=== PATIENT | female | born 1980 | race Caucasian/White ===

== ENCOUNTER → 2020-01-01 15:16 | Outpatient (BNVA) | payer SELFPAY | PROVIDERS: Family Provider Family Medicine; PCP Family Medicine; Visit Provider Obstetrics & Gynecology | DX: R10.2 Pelvic and perineal pain (principal) | CPT/HCPCS: 76830 ==

== ENCOUNTER → 2020-01-13 15:55 | Outpatient (BNVA) | payer SELFPAY | PROVIDERS: Family Provider Family Medicine; PCP Family Medicine; Visit Provider Obstetrics & Gynecology | DX: Z86.19 Personal history of other infectious and parasitic diseases (principal); N63.10 Unspecified lump in the right breast, unspecified quadrant | CPT/HCPCS: 88175 ==

== ENCOUNTER → 2020-01-30 14:23 | Outpatient (BNVA) | payer SELFPAY | PROVIDERS: Family Provider Family Medicine; PCP Family Medicine; Visit Provider Obstetrics & Gynecology | DX: R39.9 Unspecified symptoms and signs involving the genitourinary system (principal); R87.612 Low grade squamous intraepithelial lesion on cytologic smear of cervix (LGSIL) | CPT/HCPCS: 81000; 81025 ==

== ENCOUNTER → 2020-01-31 10:21 | Outpatient (BNVA) | payer SELFPAY | PROVIDERS: Family Provider Family Medicine; PCP Family Medicine; Visit Provider Obstetrics & Gynecology | DX: R87.612 Low grade squamous intraepithelial lesion on cytologic smear of cervix (LGSIL) (principal) | CPT/HCPCS: 88305 ==

== ENCOUNTER 2020-02-26 11:46 | Outpatient (CLI) | payer OTHER, SELFPAY ==
--- NOTE | 2020-02-26 11:58 | MM_ITS ---
WS: [id number] BILATERAL DIGITAL DIAGNOSTIC MAMMOGRAM MAMMOGRAPHY WITH CAD CLINICAL INFORMATION: RIGHT BREAST LUMP TECHNIQUE: Bilateral CC, MLO, and ML views. FINDINGS: The breasts are composed of heterogeneous fibroglandular density, which can limit the detection of sm all underlying mass lesions. Palpable marker in the right axillary tail. No underlying mammographic a bnormalities. Ultrasound is pending. Left breast is unremarkable. ULTRASOUND BREAST RIGHT TECHNIQUE: Ultrasound right breast focused area of concern. CLINICAL INFORMATION: BREAST LUMP COMPARISON: None. FINDINGS: Ultrasound right axillary tail area of concern. Normal underlying breast tissue and fatty tissue. Lob ulated slightly enlarged lymph node measuring 1.3 x 0.9 x 0.6 CM. Normal fatty hilum is not visualize d. Lymph node may be reactive but is indeterminant. This can be further evaluated with ultrasound-yassine ded biopsy. No other abnormalities. IMPRESSION: MM/[place] [id number] BI-RADS: 4A-Suspicious: Low FOLLOW UP: Ultrasound-guided biopsy
== END 2020-02-26 11:47 | disposition home or self-care (01) ==
LOC: RADSHAW 11:55
PROVIDERS: Visit Provider Nurse Practitioner Family
DX: N63.10 Unspecified lump in the right breast, unspecified quadrant (principal)
CPT/HCPCS: 76642; 77066

== ENCOUNTER 2020-03-06 12:10 | Outpatient (CLI) | payer MEDICAID, SELFPAY ==
--- NOTE | 2020-03-06 13:00 | US_ITS ---
NOTE: Report was unsigned for reason: Order was edited. Original Signature date and time was: 03/12/20 0801 WS: [id number] ULTRASOUND-GUIDED RIGHT axillary lymph node biopsy. HISTORY: R BREAST LUMP COMPARISON: 02/26/2020 Procedure, risks and complications are explained to the patient. Medications are reviewed. Consent is obtained. RIGHT axillary lymph node is localized with ultrasound. Skin is cleansed with ChloraPrep and anesthetized with 1% buffered lidocaine. Small dermatome is made. Under sterile conditions lymph node is is biopsied with a 20-gauge Achieve needle. Multiple core biopsies are performed. Material placed in formalin and sent to pathology for review. No complications encountered. Breast tissue marker (Bard ultrasound enhanced ribbon): None. Patient left the radiology suite with no complications. Patient is instructed to return to [facility] or call with any concerns. HOMER
== END 2020-03-06 12:11 | disposition home or self-care (01) ==
LOC: RAD 12:13
DX: N63.10 Unspecified lump in the right breast, unspecified quadrant (principal)
CPT/HCPCS: 19083; 38505; 76942; 88305

== ENCOUNTER 2020-09-14 14:20 | Outpatient (CLI) | payer OTHER, SELFPAY ==
--- NOTE | 2020-09-14 14:27 | US_ITS ---
WS: [id number] DIAGNOSTIC RIGHT DIGITAL MAMMOGRAM WITH CAD RIGHT breast ultrasound, limited HISTORY: breast lump , 6 month follow-up. COMPARISON: 02/26/2020 and 05/10/2011. Technique: CC, MLO and ML views. Spot compression RIGHT MLO. Breast composition: The breasts are heterogeneously dense, which may obscure small masses. No suspici ous masses. Normal fibroglandular pattern. RIGHT breast ultrasound, limited. There are no suspicious masses. Several benign lymph nodes noted in the axillary tail and towards the axilla. These lymph nodes are normal. US/US breast RT limited* [id number] IMPRESSION: BI-RADS: 1-Negative FOLLOW UP: 1 Year Follow-up
--- NOTE | 2020-09-14 14:30 | MM_ITS ---
WS: [id number] DIAGNOSTIC RIGHT DIGITAL MAMMOGRAM WITH CAD RIGHT breast ultrasound, limited HISTORY: breast lump , 6 month follow-up. COMPARISON: 02/26/2020 and 05/10/2011. Technique: CC, MLO and ML views. Spot compression RIGHT MLO. Breast composition: The breasts are heterogeneously dense, which may obscure small masses. No suspici ous masses. Normal fibroglandular pattern. RIGHT breast ultrasound, limited. There are no suspicious masses. Several benign lymph nodes noted in the axillary tail and towards the axilla. These lymph nodes are normal. MM/[place] [id number] IMPRESSION: BI-RADS: 1-Negative FOLLOW UP: 1 Year Follow-up
== END 2020-09-14 14:21 | disposition home or self-care (01) ==
LOC: RADSHAW 14:22
PROVIDERS: Visit Provider Nurse Practitioner Family
DX: N63.10 Unspecified lump in the right breast, unspecified quadrant (principal)
CPT/HCPCS: 76642; 77065

== ENCOUNTER 2021-03-08 10:58 | Outpatient (CLI) | payer OTHER, SELFPAY ==
--- NOTE | 2021-03-08 11:06 | MM_ITS ---
WS: [id number] BILATERAL DIGITAL SCREENING MAMMOGRAPHY WITH CAD CLINICAL INFORMATION: SCREENING HISTORY: Screening mammogram. No current complaints. COMPARISON: February 26, 2020 TECHNIQUE: Bilateral CC and MLO views. FINDINGS: The breasts are composed of heterogeneous fibroglandular density tissue, which can limit the detectio n of small underlying mass lesions. No suspicious mass, asymmetry, calcifications, or architectural d istortion. No evidence of malignancy. MM/[place] [id number] IMPRESSION: BI-RADS: 1-Negative FOLLOW UP: 1 Year Follow-up Recommend return to annual screening mammography.
== END 2021-03-08 10:59 | disposition home or self-care (01) ==
LOC: RADSHAW 11:02
PROVIDERS: PCP Family Medicine Adult Medicine; Visit Provider Nurse Practitioner Family
DX: Z12.31 Encounter for screening mammogram for malignant neoplasm of breast (principal)
CPT/HCPCS: 77067

== ENCOUNTER → 2021-12-21 07:51 | Outpatient (BNVA) | payer SELFPAY | PROVIDERS: PCP Family Medicine Adult Medicine; Visit Provider Family Medicine Adult Medicine | DX: I10 Essential (primary) hypertension (principal); E66.9 Obesity, unspecified; R00.2 Palpitations; R63.5 Abnormal weight gain; Q60.0 Renal agenesis, unilateral | CPT/HCPCS: 80053; 80061; 83036; 84443; 85025 ==

== ENCOUNTER 2022-01-11 08:03 | Outpatient (CLI) | payer SELFPAY ==
--- NOTE | 2022-01-11 08:20 | XRR_ITS ---
PROCEDURE INFORMATION: Exam: XR Chest Exam date and time: 01/11/2022 8:21 AM Age: 41 years old Clinical indication: Breathing pain. Right sided thoracic pain TECHNIQUE: Imaging protocol: XR of the chest. Views: 2 views. COMPARISON: No relevant prior studies available. FINDINGS: Lungs: No pulmonary consolidation. Pleural spaces: No pleural effusion. No pneumothorax. Heart/Mediastinum: The cardiac silhouette is unremarkable. No gross evidence of pneumomediastinum. Bones/joints: No gross fracture. XR/XR chest 2V* [id number] IMPRESSION: No acute cardiopulmonary abnormality identified.
== END 2022-01-11 08:04 | disposition home or self-care (01) ==
LOC: LAB 08:04 → RAD 08:11
PROVIDERS: PCP Family Medicine Adult Medicine; Visit Provider Family Medicine Adult Medicine
DX: M54.6 Pain in thoracic spine (principal)
CPT/HCPCS: 71046

== ENCOUNTER 2022-03-09 07:29 | Outpatient (CLI) | payer OTHER, SELFPAY ==
--- NOTE | 2022-03-09 07:46 | MM_ITS ---
WS: [id number] SCREENING DIGITAL BREAST TOMOSYNTHESIS MAMMOGRAM WITH CAD HISTORY: Screening annual COMPARISON: 09/14/2020, 02/26/2020 Bilateral CC and MLO with tomosynthesis and synthetic mammography submitted. Computer aided detection analyzed. Breast composition: The breasts are heterogeneously dense, which may obscure small masses. Partially obscured mass in the lateral LEFT breast near 2-3 o'clock axis measures 2.5 x 2.2 x 2.2 cm. Otherwise no abnormalities are identified. MM/[place] [id number] IMPRESSION: BI-RADS: 0-Incomplete: Need additional imaging evaluation FOLLOW UP: Need Additional Imaging Recommendation: Ultrasound LEFT breast from 1-4 o'clock.
== END 2022-03-09 07:30 | disposition home or self-care (01) ==
PROVIDERS: PCP Family Medicine Adult Medicine; Visit Provider Family Medicine Adult Medicine
DX: Z12.31 Encounter for screening mammogram for malignant neoplasm of breast (principal)
CPT/HCPCS: 77063; 77067

== ENCOUNTER 2022-04-04 15:09 | Outpatient (CLI) | payer OTHER, SELFPAY ==
--- NOTE | 2022-04-04 | US_ITS ---
WS: [id number] ULTRASOUND SOFT TISSUES RIGHT axilla HISTORY: RT AXILLA-LYMPHADENOPATHY COMPARISON: None available. TECHNIQUE: 2-D and color Doppler imaging is submitted. No mass identified within the RIGHT axilla. Mild soft tissue thickening which may be due to fat depos ition. There is a benign-appearing lymph node US/US soft tissue/extremity [id number] IMPRESSION: Negative ultrasound RIGHT axilla.
--- NOTE | 2022-04-04 15:17 | US_ITS ---
WS: [id number] ULTRASOUND LEFT BREAST HISTORY: Abnormal screening exam. COMPARISON: 03/09/2022 TECHNIQUE: 2-D and Doppler. Ultrasound directed from 1-4 o'clock. There is a large cystic mass at 3:00 measuring 1.8 x 1.2 x 2.5 cm. There are a few additional scattered cysts. No solid mass. US/US breast LT limited* [id number] IMPRESSION: BI-RADS: 2-Benign FOLLOW-UP: 1 Year Follow-up LEFT breast cyst corresponds to the mammographic abnormality. Recommend return to annual screening mammography.
== END 2022-04-04 15:10 | disposition home or self-care (01) ==
LOC: RAD 15:11
PROVIDERS: PCP Family Medicine Adult Medicine; Visit Provider Family Medicine Adult Medicine
DX: R92.8 Other abnormal and inconclusive findings on diagnostic imaging of breast (principal); N60.02 Solitary cyst of left breast
CPT/HCPCS: 76642; 76882

== ENCOUNTER 2023-04-06 12:59 | Outpatient (CLI) | payer OTHER, SELFPAY ==
--- NOTE | 2023-04-06 14:02 | MM_ITS ---
WS: [id number] BILATERAL 3D TOMOSYNTHESIS DIGITAL DIAGNOSTIC MAMMOGRAPHY WITH CAD CLINICAL INFORMATION: BREAST MASS HISTORY: RIGHT breast mass COMPARISON: 2021 TECHNIQUE: Bilateral CC, MLO, and ML views. FINDINGS: The breasts are composed of heterogeneous fibroglandular density, which can limit the detection of sm all underlying mass lesions. Palpable marker overlying the RIGHT axilla. Normal underlying Lymph nodes. No parenchymal lesions in this area. Ultrasound is pending. Previously described LEFT breast cyst near the 3:00 position has improved. LEFT breast is otherwise u nremarkable. ULTRASOUND BREAST RIGHT TECHNIQUE: Ultrasound right breast focused area of concern. CLINICAL INFORMATION: BREAST MASS FINDINGS: Ultrasound RIGHT breast at the axilla. Normal underlying parenchymal and fatty tissue. No suspicious cystic or solid lesions. No suspicious lesions to target for biopsy. A few normal-appearing lymph nod es. Recommend return to annual screening mammography. MM/[place] [id number] IMPRESSION: BI-RADS: 2-Benign FOLLOW UP: 1 Year Follow-up Recommend return to annual screening mammography.
--- NOTE | 2023-04-06 14:06 | US_ITS ---
WS: [id number] BILATERAL 3D TOMOSYNTHESIS DIGITAL DIAGNOSTIC MAMMOGRAPHY WITH CAD CLINICAL INFORMATION: BREAST MASS HISTORY: RIGHT breast mass COMPARISON: 2021 TECHNIQUE: Bilateral CC, MLO, and ML views. FINDINGS: The breasts are composed of heterogeneous fibroglandular density, which can limit the detection of sm all underlying mass lesions. Palpable marker overlying the RIGHT axilla. Normal underlying Lymph nodes. No parenchymal lesions in this area. Ultrasound is pending. Previously described LEFT breast cyst near the 3:00 position has improved. LEFT breast is otherwise u nremarkable. ULTRASOUND BREAST RIGHT TECHNIQUE: Ultrasound right breast focused area of concern. CLINICAL INFORMATION: BREAST MASS FINDINGS: Ultrasound RIGHT breast at the axilla. Normal underlying parenchymal and fatty tissue. No suspicious cystic or solid lesions. No suspicious lesions to target for biopsy. A few normal-appearing lymph nod es. Recommend return to annual screening mammography. US/US breast RT limited* [id number] IMPRESSION: BI-RADS: 2-Benign FOLLOW UP: 1 Year Follow-up Recommend return to annual screening mammography.
== END 2023-04-06 13:00 | disposition home or self-care (01) ==
PROVIDERS: PCP Family Medicine Adult Medicine; Visit Provider Advanced Practice Midwife
DX: N63.10 Unspecified lump in the right breast, unspecified quadrant (principal)
CPT/HCPCS: 76642; 77062; G0279

== ENCOUNTER 2024-04-04 14:30 | Outpatient (CLI) | payer OTHER, SELFPAY ==
--- NOTE | 2024-04-04 14:37 | MM_ITS ---
WS: [id number] BILATERAL 3D TOMOSYNTHESIS DIGITAL SCREENING MAMMOGRAPHY WITH CAD CLINICAL INFORMATION: R BREAST AXILLA LUMP HISTORY: Screening mammogram. No current complaints. COMPARISON: 04/06/2023 TECHNIQUE: Bilateral CC and MLO views. FINDINGS: The breasts are composed of heterogeneous fibroglandular density tissue, which can limit the detectio n of small underlying mass lesions. Palpable marker overlying the RIGHT axilla. Normal underlying fat ty tissue. Ultrasound of this area is pending. LEFT breast is unchanged. ULTRASOUND BREAST RIGHT TECHNIQUE: Ultrasound right breast focused area of concern. CLINICAL INFORMATION: R BREAST AXILLA LUMP FINDINGS: Ultrasound RIGHT axilla in the area of concern. Prominent underlying fatty tissue in the area of palp able concern. This is somewhat appearance of ~23. A few prominent underlying lymph nodes although sim ilar in appearance to 2022 and also similar in appearance to the contralateral LEFT axilla. Findings have a benign appearance. Recommend return to annual screening mammography. IMPRESSION MM/[place] [id number] BI-RADS: 2-Benign FOLLOW UP: 1 Year Follow-up Recommend return to annual screening mammography.
== END 2024-04-04 14:31 | disposition home or self-care (01) ==
PROVIDERS: PCP Family Medicine Adult Medicine; Visit Provider Advanced Practice Midwife
DX: R92.8 Other abnormal and inconclusive findings on diagnostic imaging of breast (principal); R92.333 Mammographic heterogeneous density, bilateral breasts; R92.323 Mammographic fibroglandular density, bilateral breasts
CPT/HCPCS: 76642; 77062; G0279

== ENCOUNTER 2025-03-05 07:49 | Outpatient (CLI) | payer OTHER, SELFPAY ==
--- NOTE | 2025-03-05 07:53 | US_ITS ---
WS: [id number] Exam: US breast RT limited* [id number] Date/Time of Exam: 03/05/2025 8:33 AM Reason For Exam: R AXILLA 6CM BREAST LUMP Comparison 04/04/2024. Regional ultrasound the RIGHT axilla is performed. There is no sign of suspicious mass. Fatty replaced lymph nodes are again noted. These are stable in appearance. BI-RADS Category 2. Recommend yearly screening mammography. IMPRESSION1. Fatty replaced right axillary lymph node stable in appearance. No suspicious ultrasound findings.
--- NOTE | 2025-03-05 07:53 | MM_ITS ---
WS: [id number] VIEWS: MLO, CC, and ML views both breasts. 3D digital tomosynthesis is also included in this exam. Comparison made with prior exam of 05/10/2011, 02/26/2020, 09/14/2020, 03/08/2021, 03/09/2022, 04/06/2023, 04/04/2024,. Findings: The breasts are extremely dense, which lowers the sensitivity of mammography. No sign of suspicious mass, tumor calcification or architectural distortion. Stable appearing nodular densities in both breasts. Regional ultrasound of the RIGHT axilla recommended for further work-up. MM/MM diag BI tomosynthesis [id number] Impression: BI-RADS: 0 - Incomplete: Need additional imaging evaluation FOLLOW-UP: See Report This mammogram was also analyzed by the Computer Aided Detection System R2 Imag e [facility].
== END 2025-03-05 07:50 | disposition home or self-care (01) ==
PROVIDERS: PCP Family Medicine; Visit Provider Advanced Practice Midwife
DX: N63.31 Unspecified lump in axillary tail of the right breast (principal); R59.0 Localized enlarged lymph nodes; N64.89 Other specified disorders of breast; R92.343 Mammographic extreme density, bilateral breasts
CPT/HCPCS: 76642; 77062; G0279

== ENCOUNTER 2025-05-20 08:46 | Outpatient (CLI) | payer OTHER, SELFPAY ==
--- NOTE | 2025-05-20 08:59 | US_ITS ---
WS: [id number] ULTRASOUND LEFT BREAST, limited HISTORY: MASTODYNIA, retroareolar pain. COMPARISON: Mammogram 03/05/2025 and 04/04/2024 TECHNIQUE: 2-D and Doppler. Ultrasound is directed to the retroareolar LEFT breast in the area of pain. No dilated ducts. No mass or shadowing. No abnormality identified. US/US breast LT limited* [id number] IMPRESSION: BI-RADS: 1- Negative FOLLOW-UP: 1 Year Follow-up No ultrasound abnormality LEFT retroareolar breast.
== END 2025-05-20 08:47 | disposition home or self-care (01) ==
LOC: RAD 08:48
PROVIDERS: PCP Family Medicine; Visit Provider Advanced Practice Midwife
DX: N64.4 Mastodynia (principal)
CPT/HCPCS: 76642